=== PATIENT | male | born 1990 | race Caucasian/White ===

== ENCOUNTER 2017-06-22 13:33 | Emergency (ER) | payer OTHER ==
[2017-06-22 13:44] VITALS: BP 131/86
--- NOTE | 2017-06-22 14:08 | UC ---
Back Pain HPI - HPI Summary HPI Summary: Pt presents with intermittent lower back pain for the last 3-4 months. 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 Towards the end of his shift he will have lower back pain that causes him to need to lay down when he gets home. He usually takes "half a bottle" of ibuprofen, which helps - but isn't helping as much recently. He does have some pain that radiates down the back of both legs. Denies fever, chills, numbness, tingling, weakness, loss of bowel/bladder function, or injury. He also tells me that his perineum has been red and itching him for the last few weeks. He is concerned this is an STD. He tells me that he has been monogamous with his and they haven't been sexually active in over a month due to her current . He denies penile pain/discharge/rashes, testicular pain, dysuria, hematuria, bleeding/discharge/ or drainage from the perineal area. - History of Current Complaint Chief Complaint: UCBackPain Stated Complaint: LOWER BACK PAIN Hx Obtained From: Patient Onset/Duration: Gradual Onset Timing: Intermittent Severity Initially: Moderate Severity Currently: Moderate Pain Intensity: 4 Pain Scale Used: 0-10 Numeric Character: Dull, Aching Aggravating Factor(s): Movement, Bending Alleviating Factor(s): Rest, Position - Allergies/Home Medications Allergies/Adverse Reactions: Allergies Allergy/AdvReac Type Severity Reaction Status Date / Time Amoxicillin Allergy as a child Verified 06/22/17 13:43 PMH/Surg Hx/FS Hx/Imm Hx - Surgical History Surgical History: None - Family History Known Family History: Positive: Other - TWIN; BONE FRAILTY - Social History Occupation: Employed Full-time Lives: With Family Alcohol Use: Rare Substance Use Type: Marijuana Substance Use Comment - Amount & Last Used: occasional Smoking Status (MU): Light Every Day Tobacco Smoker Type: Cigarettes Amount Used/How Often: 1 pack about every three days - Immunization History Most Recent Influenza Vaccination: none Review of Systems Constitutional: Negative Skin: Rash - Perineum Respiratory: Negative Cardiovascular: Negative Gastrointestinal: Negative Genitourinary: Negative Neurovascular: Negative Musculoskeletal: Decreased ROM - Spine, Other: - LBP Neurological: Negative Psychological: Negative All Other Systems Reviewed And Are Negative: Yes Physical Exam Triage Information Reviewed: Yes Appearance: Well-Appearing, No Pain Distress, Well-Nourished Vital Signs: Initial Vital Signs Temp 98.4 F 06/22/17 13:39 Pulse 77 06/22/17 13:39 Resp 16 06/22/17 13:39 BP 131/86 06/22/17 13:39 Pulse Ox 100 06/22/17 13:39 Vital Signs Reviewed: Yes Neck: Positive: Supple, Nontender, No Lymphadenopathy Respiratory: Positive: Chest non-tender, Lungs clear, Normal breath sounds Cardiovascular: Positive: RRR, No Murmur, Pulses Normal Abdomen Description: Positive: Nontender, No Organomegaly, Soft. Negative: CVA Tenderness (R), CVA Tenderness (L), Distended, Guarding Bowel Sounds: Positive: Present Musculoskeletal: Positive: Strength Intact - B/L LEs, ROM Intact - B/L LEs, No Edema, Other: - Positive SLR right. Negative TRINA. Flexion to 45deg before pain. No extension without pain. Neurological: Positive: Alert, Other: - Sensations intact symmetric L3-S1 bilaterally Psychological: Positive: Age Appropriate Behavior Skin: Positive: rashes - Diffuse area of mild erythema on perineum. No bleeding , discharge, ecchymosis, or abscess appreciated. Back Pain Course/Dx - Course Course Of Treatment: IMPRESSION: UNREMARKABLE RADIOGRAPHS OF THE LUMBAR SPINE. LBP - suspect chronic muscle spasm vs spinal stenosis. Toradol and meloxicam. Advised to try shoe inserts of added support and to f/u with his PCP for further eval and possible physical therapy referral. Rash - Suspect yeast vs tinea. Will treat with nystatin and advise him to f/u with PCP if symptoms persist or worsen. - Differential Dx/Diagnosis Provider Diagnoses: Low back pain. Yeast infection perineum Discharge - Discharge Plan Condition: Stable Disposition: HOME Prescriptions: Meloxicam 7.5 mg PO BID #20 tab Nystatin TOP POWDER* 1 applic TOPICAL BID #1 btl Patient Education Materials: Low Back Strain (ED), Lower Back Exercises (ED) Referrals: Osorio Proctor MD [Primary Care Provider] - Additional Instructions: If you develop a fever, shortness of breath, chest pain, new or worsening symptoms - please call your PCP or go to the ED.
[2017-06-22] MEDS ORDERED: Ketorolac INJ* 30 MG/ML 1 ML VIAL IM ONE (14:23)
--- NOTE | 2017-06-22 14:49 | RAD ---
HISTORY: Low back pain COMPARISONS: None VIEWS: 5 , Frontal, lateral, coned-down lateral sacral, and bilateral oblique views of the lumbar spine. FINDINGS: ALIGNMENT: The alignment is normal. VERTEBRAL BODIES: The vertebral body heights are normal. The interpedicular distances are normal. There is partial lumbarization of the S1 vertebral body. JOINTS: The facet joints are normal. INTERVERTEBRAL DISCS: The intervertebral disc heights are normal. SOFT TISSUE: Unremarkable. OTHER: The pelvis is unremarkable. The lung bases are clear. IMPRESSION: UNREMARKABLE RADIOGRAPHS OF THE LUMBAR SPINE
== END 2017-06-22 15:01 | disposition home or self-care (01) ==
LOC: UCEAST 13:33
DX: M54.5 Low back pain (principal); B37.49 Other urogenital candidiasis; Z88.1 Allergy status to other antibiotic agents; F12.90 Cannabis use, unspecified, uncomplicated; F17.210 Nicotine dependence, cigarettes, uncomplicated
CPT/HCPCS: 72110; 96372; 99212; G0463; J1885

== ENCOUNTER 2017-09-07 15:12 | Emergency (ER) | payer SELFPAY ==
[2017-09-07 15:34] VITALS: BP 120/84
--- NOTE | 2017-09-07 15:49 | UC ---
Onofre Shepard Stephanie, scribed for Amado Rose MD on 09/07/17 at 1541 . Respiratory Complaint HPI - HPI Summary HPI Summary: The pt is a 27 y/o M presenting to with c/o rhinorrhea that began 4 days ago on 09/03/17. Symptoms include nasal congestion with green sputum, SOB, cough and chest congestion. The pt reports recent illness with the flu last week. Also reports a rash between his scrotum and anus that itches and cracks. He has tried antifungal powder but, it is not getting better. - History of Current Complaint Chief Complaint: UCRespiratory Stated Complaint: SINUS COMPLAINT Time Seen by Provider: 09/07/17 15:15 Hx Obtained From: Patient Onset/Duration: Gradual Onset, Lasting Days - 4, Still Present Timing: Constant Severity Currently: None Pain Intensity: 0 Pain Scale Used: 0-10 Numeric Character: Cough: Nonproductive - green sputum Aggravating Factors: Nothing Alleviating Factors: Nothing Associated Signs And Symptoms: Positive: Nasal Congestion, Sinus Discomfort - Allergies/Home Medications Allergies/Adverse Reactions: Allergies Allergy/AdvReac Type Severity Reaction Status Date / Time amoxicillin Allergy Bleeding Verified 09/07/17 15:33 PMH/Surg Hx/FS Hx/Imm Hx Previously Healthy: Yes - The pt denies any past medical hx. - Surgical History Surgical History: None - Family History Known Family History: Positive: Other - TWIN; BONE FRAILTY - Social History Occupation: Employed Part-time Lives: With Family Alcohol Use: None Substance Use Type: Marijuana Substance Use Comment - Amount & Last Used: occasional Smoking Status (MU): Light Every Day Tobacco Smoker Type: Cigarettes Amount Used/How Often: 3 per Have You Smoked in the Last Year: Yes - Immunization History Most Recent Influenza Vaccination: none Review of Systems Constitutional: Negative Skin: Negative Eyes: Negative ENT: Nasal Discharge, Sinus Congestion, Sinus Pain/Tenderness Respiratory: Shortness Of Breath, Cough Cardiovascular: Negative Gastrointestinal: Negative Genitourinary: Negative Motor: Negative Neurovascular: Negative Musculoskeletal: Negative Neurological: Negative Psychological: Negative Is Patient Immunocompromised?: No All Other Systems Reviewed And Are Negative: Yes Physical Exam - Summary Physical Exam Summary: General: well-appearing, no pain distress Skin: warm, color reflects adequate perfusion, dry Head: normal Eyes: EOMI, BERNABE ENT: rhinorrhea, posterior pharynx positive erythema Neck: supple, nontender Respiratory: CTA, breath sounds present Cardiovascular: RRR Abdomen: soft, nontender Bowel: present Musculoskeletal: normal, strength/ROM intact Neurological: normal, sensory/motor intact, A&O x3 Psychological: affect/mood appropriate Triage Information Reviewed: Yes Vital Signs: Initial Vital Signs Temp 98.9 F 09/07/17 15:25 Pulse 87 09/07/17 15:25 Resp 18 09/07/17 15:25 BP 120/84 09/07/17 15:25 Pulse Ox 100 09/07/17 15:25 UC Diagnostic Evaluation - Laboratory O2 Sat by Pulse Oximetry: 100 Re-Evaluation - Re-Evaluation First Eval Re-Evaluation Time: 15:40 Change: Unchanged - ED physician discussed discharge plan with the pt. The pt understands and agrees with the discharge plan. Respiratory Course/Dx - Course Course Of Treatment: Rx ABx for Sinuses; patient allergic to PCN, states ZPac has helped in the past. Patient had his son with him and did not want to show me his perineal rash. Will treat with Mupirocin and asked him to F/U with PMD; he agreed. - Differential Dx/Diagnosis Provider Diagnoses: SINUSITIS. PERINEAL RASH Discharge - Sign-Out/Discharge Documenting (check all that apply): Discharge - Discharge Plan Condition: Stable Disposition: HOME Prescriptions: Azithromyxin MANNY (NF) [Z-Manny (Zithromax) 250 mg tabs #6] 2 tab PO .TODAY, THEN 1 DAILY #6 tab Mupirocin 2% OINT* [Bactroban 2 % Oint*] 1 applic TOPICAL BID #1 tube Patient Education Materials: Sinusitis (ED), Acute Rash (ED) Referrals: Osorio Proctor MD [Primary Care Provider] - Additional Instructions: FOLLOW UP WITH YOUR DOCTOR. RETURN TO THE EMERGENCY DEPARTMENT FOR ANY WORSENING OF YOUR CONDITION OR QUESTIONS OR CONCERNS. - Billing Disposition and Condition Condition: STABLE Disposition: HOME The documentation as recorded by the Onofre campuzano Stephanie accurately reflects the service I personally performed and the decisions made by me, Amado Rose MD.
== END 2017-09-07 15:50 | disposition home or self-care (01) ==
LOC: UCEAST 15:12
DX: J32.9 Chronic sinusitis, unspecified (principal); R21 Rash and other nonspecific skin eruption; Z88.0 Allergy status to penicillin; F17.210 Nicotine dependence, cigarettes, uncomplicated
CPT/HCPCS: 99212; G0463

== ENCOUNTER 2017-09-24 11:33 | Emergency (ER) | payer SELFPAY ==
[2017-09-24 12:25] VITALS: BP 117/83
--- NOTE | 2017-09-24 13:00 | UC ---
Throat Pain/Nasal Fredrick HPI - HPI Summary HPI Summary: The patient to the urgent care today with chief complaint of almost 2 weeks of nasal and sinus congestion head feels full, ears nose and sinus feel full - History of Current Complaint Chief Complaint: UCRespiratory Stated Complaint: SINUSES Time Seen by Provider: 09/24/17 12:51 Hx Obtained From: Patient Onset/Duration: Sudden Onset, Lasting Weeks - 2, Still Present Severity: Moderate Pain Intensity: 7 Pain Scale Used: 0-10 Numeric Cough: None Associated Signs & Symptoms: Positive: Sinus Discomfort, Nasal Discharge, Fever - Allergies/Home Medications Allergies/Adverse Reactions: Allergies Allergy/AdvReac Type Severity Reaction Status Date / Time amoxicillin Allergy Bleeding Verified 09/24/17 12:20 Home Medications: Home Medications Acetaminophen TAB* [Tylenol TAB*] 325 mg PO Q4H PRN 09/24/17 [History Confirmed 09/24/17] guaiFENesin [Mucinex] 600 mg PO DAILY 09/24/17 [History Confirmed 09/24/17] PMH/Surg Hx/FS Hx/Imm Hx Previously Healthy: Yes - Surgical History Surgical History: None - Family History Known Family History: Positive: Other - TWIN; BONE FRAILTY - Social History Occupation: Employed Full-time Lives: With Family Alcohol Use: None Substance Use Type: Marijuana Substance Use Comment - Amount & Last Used: occasional Smoking Status (MU): Light Every Day Tobacco Smoker Type: Cigarettes Amount Used/How Often: 3 per Have You Smoked in the Last Year: Yes - Immunization History Most Recent Influenza Vaccination: none Review of Systems Constitutional: Chills, Fatigue Skin: Negative Eyes: Negative ENT: Negative, Sore Throat, Nasal Discharge, Sinus Congestion, Sinus Pain/ Tenderness Respiratory: Negative Cardiovascular: Negative Gastrointestinal: Negative Genitourinary: Negative Motor: Negative Neurovascular: Negative Musculoskeletal: Negative Neurological: Headache Psychological: Negative Is Patient Immunocompromised?: No All Other Systems Reviewed And Are Negative: Yes Physical Exam Triage Information Reviewed: Yes Appearance: Well-Appearing, No Pain Distress, Well-Nourished - Clarification losses or, Thin Vital Signs: Initial Vital Signs Temp 98.6 F 09/24/17 12:18 Pulse 95 09/24/17 12:18 Resp 18 09/24/17 12:18 BP 117/83 09/24/17 12:18 Pulse Ox 99 09/24/17 12:18 Vital Signs Reviewed: Yes Eye Exam: Normal Eyes: Positive: Conjunctiva Clear ENT Exam: Normal ENT: Positive: Normal ENT inspection, Hearing grossly normal, Nasal congestion, Nasal drainage, TMs normal, Sinus tenderness, Uvula midline. Negative: Tonsillar swelling, Tonsillar exudate, Trismus, Muffled voice, Hoarse voice, Dental tenderness Dental Exam: Normal Neck exam: Normal Neck: Positive: Supple, Nontender, No Lymphadenopathy Respiratory Exam: Normal Respiratory: Positive: Chest non-tender, Lungs clear, Normal breath sounds, No respiratory distress, No accessory muscle use Cardiovascular Exam: Normal Cardiovascular: Positive: RRR, No Murmur, Pulses Normal, Brisk Capillary Refill Musculoskeletal Exam: Normal Musculoskeletal: Positive: Strength Intact, ROM Intact, No Edema Neurological Exam: Normal Neurological: Positive: Alert, Muscle Tone Normal Psychological Exam: Normal Skin Exam: Normal Throat Pain/Nasal Course/Dx - Course Assessment/Plan: zithromax Mucinex D ibuprofen Flonase nasal spray, increase fluids smoking cessation information. Tylenol ibuprofen for pain. follow with PCP when necessary - Differential Dx/Diagnosis Provider Diagnoses: Nicotine dependent, acute rhinosinusitis Discharge - Sign-Out/Discharge Documenting (check all that apply): Discharge - Discharge Plan Condition: Stable Disposition: HOME Prescriptions: Azithromycin TAB* [Zithromax TAB (Z-SALTY) 250 mg #6 tabs] 2 tab PO .TODAY, THEN 1 DAILY #1 salty Guaifenesin/Pseudoephedrne HCl [Mucinex D ER 600-60 mg Tablet] 1 each PO BID # 20 tab.er.12h Ibuprofen TAB* [Motrin TAB* 600 MG] 600 mg PO Q6H PRN #40 tab PRN Reason: pain Patient Education Materials: How to Stop Smoking (ED), Sinusitis (ED) Referrals: [facility] [Outside] - If Needed - Billing Disposition and Condition Condition: STABLE Disposition: HOME
== END 2017-09-24 13:48 | disposition home or self-care (01) ==
LOC: UCCORT 11:33
DX: J01.90 Acute sinusitis, unspecified (principal); F17.210 Nicotine dependence, cigarettes, uncomplicated; Z88.0 Allergy status to penicillin
CPT/HCPCS: 99212; G0463